=== PATIENT | female | born 1960 | race Caucasian/White ===

== ENCOUNTER 2017-10-23 13:55 | Outpatient (CLI) | payer BC ==
--- NOTE | 2017-10-24 11:12 | PET ---
PET CT: HISTORY: 57-year-old female with bilateral breast cancer. Status post bilateral mastectomy with breast implant s and post chemo/radiation therapy. Exam requested for restaging. TECHNIQUE: PET scanning with CT attenuation correction was performed from the base of the brain through the prox imal thighs following the intravenous administration of 10.6 mCi [id number] in the left antecubital steffanie a. Imaging was performed after an uptake interval of 34 minutes. COMPARISON: PET CT dated 01/11/17. FINDINGS: No hypermetabolic axillary, internal mammary, mediastinal, hilar, cervical, or abdominal pelvic lymph nodes, liver, adrenal, or skeletal lesions are seen. There has been interval resolution of the hypermetabolic activity in the right internal mammary lymph node with a current SUV of 1.8 (previously 2.6). No hypermetabolic pulmonary nodules are seen. There is physiologic activity in the GI and tracts. The CT scan used for attenuation correction demonstrates no evidence of pleural effusions or ascites. Cholelithiasis and extensive sclerotic lesions in the skeleton are redemonstrated. IMPRESSION: 1. Interval resolution of hypermetabolic activity in the right internal mammary lymph node since 10/29. No PET evidence of metastatic disease. 2. Sclerotic lesions in the skeleton should be evaluated with whole body bone scan. POS: [facility]
== END 2017-10-23 13:56 | disposition home or self-care (01) ==
LOC: PET 13:55
PROVIDERS: ATTEND Internal Medicine Hematology & Oncology
DX: C50.919 Malignant neoplasm of unspecified site of unspecified female breast (principal); M89.9 Disorder of bone, unspecified
CPT/HCPCS: 78815; A9552